=== PATIENT | male | born 1945 | race Caucasian/White ===

== ENCOUNTER 2022-09-13 12:45 | Outpatient (CLI) | payer MEDICARE | END 2022-09-13 12:46 | disposition home or self-care (01) | LOC: LAB.S 12:45 | PROVIDERS: ATTEND Internal Medicine | DX: E89.0 Postprocedural hypothyroidism (principal); Z85.850 Personal history of malignant neoplasm of thyroid | CPT/HCPCS: 36415; 84443; 86800 ==